=== PATIENT | female | born 1980 | race African-American/Black ===

== ENCOUNTER 2017-06-29 22:13 | Emergency (ER) | payer OTHER, SELFPAY ==
[~2017-06-29] VITALS: Ht 167.6 cm; Wt 136.5 kg
[2017-06-29] MEDS ORDERED: ASPI-691 PO (22:32)
[2017-06-29] MEDS ORDERED: ALBUTEROL INHALER (22:32)
[2017-06-29] MEDS ORDERED: METHOCARBAMOL 750 MG TABLET PO ONE (23:30)
[2017-06-29] MEDS ORDERED: HYDROcodone/APAP 5/325 TABLET PO ONE (23:30)
[2017-06-30] MEDS ORDERED: HYDROcodone/APAP 5/325 TABLET ONE ×2 (00:13→03:35)
[2017-06-30] MEDS ORDERED: METHOCARBAMOL 750 MG TABLET ONE (00:13)
[2017-06-30] MEDS ORDERED: HYDROcodone/APAP 5/325 TABLET PO ONE (03:30)
[2017-06-30] MEDS ORDERED: KETOROLAC 30 MG/1 ML IM ONE (03:30)
[2017-06-30] MEDS ORDERED: KETOROLAC 30 MG/1 ML ONE (03:34)
[2017-06-30 03:41] VITALS: BP 113/69
== END 2017-06-30 05:06 | disposition home or self-care (01) ==
LOC: ED 23:59
DX: S39.012A Strain of muscle, fascia and tendon of lower back, initial encounter (principal); M54.42 Lumbago with sciatica, left side; G43.909 Migraine, unspecified, not intractable, without status migrainosus
CPT/HCPCS: 72110; 96372; 99284; J1885

== ENCOUNTER 2017-07-04 12:01 | Emergency (ER) | payer SELFPAY ==
[~2017-07-04] VITALS: Ht 170.2 cm; Wt 137.0 kg
[~2017-07-04 12:01] MED LIST: ALBUTEROL INHALER; ASPI-691 PO
[2017-07-04 12:03] VITALS: BP 116/76
[2017-07-04] MEDS ORDERED: ALBU0.63 NEB (13:42)
[2017-07-04] MEDS ORDERED: HYDR-3240 PO (13:42)
[2017-07-04] MEDS ORDERED: OXYcodone/APAP 5/325MG TABLET ONE (13:54)
[2017-07-04] MEDS ORDERED: KETOROLAC 30 MG/1 ML ONE (13:54)
[2017-07-04] MEDS ORDERED: CYCLOBENZAPRINE 10 MG TABLET PO ONE (14:00)
[2017-07-04] MEDS ORDERED: KETOROLAC 30 MG/1 ML IM ONE (14:00)
[2017-07-04] MEDS ORDERED: OXYcodone/APAP 5/325MG TABLET PO ONE (14:00)
[2017-07-04] MEDS ORDERED: CYCLOBENZAPRINE 10 MG TABLET ONE (14:09)
== END 2017-07-04 14:27 | disposition home or self-care (01) ==
LOC: ED 14:21
DX: M54.41 Lumbago with sciatica, right side (principal)
CPT/HCPCS: 96372; 99283; J1885

== ENCOUNTER 2017-08-18 10:04 | Emergency (ER) | payer SELFPAY ==
[~2017-08-18] VITALS: Ht 170.2 cm; Wt 135.0 kg
[~2017-08-18 10:04] MED LIST changes: +ALBU0.63 NEB; +HYDR-3240 PO
[2017-08-18 10:07] VITALS: BP 139/81
[2017-08-18] MEDS ORDERED: METHOCARBAMOL 750 MG TABLET ONE (10:44)
[2017-08-18] MEDS ORDERED: IBUPROFEN 200 MG TABLET ONE (10:45)
[2017-08-18] MEDS ORDERED: IBUPROFEN 200 MG TABLET PO ONE (11:00)
[2017-08-18] MEDS ORDERED: METHOCARBAMOL 750 MG TABLET PO ONE (11:00)
== END 2017-08-18 11:48 | disposition home or self-care (01) ==
LOC: ED 11:00
DX: S39.012A Strain of muscle, fascia and tendon of lower back, initial encounter (principal); S29.012A Strain of muscle and tendon of back wall of thorax, initial encounter; J45.909 Unspecified asthma, uncomplicated; X58.XXXA Exposure to other specified factors, initial encounter; Y93.89 Activity, other specified; Y92.89 Other specified places as the place of occurrence of the external cause; Y99.8 Other external cause status
CPT/HCPCS: 72072; 99284

== ENCOUNTER 2019-02-20 08:43 | Outpatient (CLI) | payer MEDICAID ==
[~2019-02-20] VITALS: Ht 170.2 cm; Wt 131.4 kg
[2019-02-20 09:15] VITALS: BP 116/64
[2019-02-20 09:32] LABS: MICROSCOPIC NOT IND
== END 2019-02-20 11:10 | disposition home or self-care (01) ==
LOC: LDOP 08:43
PROVIDERS: ATTEND Obstetrics & Gynecology
DX: O09.523 Supervision of elderly multigravida, third trimester (principal); O26.893 Other specified pregnancy related conditions, third trimester; Z3A.31 31 weeks gestation of pregnancy
CPT/HCPCS: 59025; 81003; 87086; 99211; G0463

== ENCOUNTER 2019-02-21 16:42 | Outpatient (CLI) | payer MEDICAID ==
[~2019-02-21] VITALS: Ht 170.2 cm; Wt 131.5 kg
[2019-02-21 17:14] LABS: MICROSCOPIC NOT IND
[2019-02-21 17:25] LABS: AMPHETAMINE SCREEN, URINE Negative (Negative); BARBITURATE SCREEN, URINE Negative (Negative); BENZODIAZEPINE SCREEN, URINE Negative (Negative); CANNABINOID SCREEN, URINE Negative (Negative); COCAINE SCREEN, URINE Negative (Negative); METHADONE SCREEN, URINE Negative (Negative); OPIATE SCREEN, URINE Negative (Negative)
== END 2019-02-21 18:10 | disposition home or self-care (01) ==
LOC: LDOP 16:42
PROVIDERS: ATTEND Obstetrics & Gynecology
DX: O09.523 Supervision of elderly multigravida, third trimester (principal); O26.893 Other specified pregnancy related conditions, third trimester; R10.9 Unspecified abdominal pain; Z3A.31 31 weeks gestation of pregnancy
CPT/HCPCS: 59025; 80307; 81003; 87086; 99211; G0463